=== PATIENT | female | born 1960 | race Caucasian/White ===

== ENCOUNTER → 2016-10-24 | Outpatient (CLI) | payer BC, OTHER ==
[2015-03-24 10:50] VITALS: BP 144/88
[~2016-10-24] MED LIST: ATOR40TA59 PO; HYDR12.58 PO; PARO40TA3 PO
--- NOTE | 2016-10-24 14:02 | RAD ---
DATE: 10/24/2016 EXAM: DIGITAL SCREEN BILAT W/CAD HISTORY: Routine screening COMPARISON: 09/30/2013 This study was interpreted with the benefit of Computerized Aided Detection (CAD). FINDINGS: There are scattered fibroglandular densities in the breasts in a slightly nodular pattern. No new or enlarging breast densities are seen. Benign type calcifications are present in both breasts. No suspicious microcalcifications are evident. IMPRESSION: Stable mammograms without evidence of malignancy. BI-RADS CATEGORY: 2 BENIGN FINDING(S) RECOMMENDED FOLLOW-UP: 12M 12 MONTH FOLLOW-UP PQRS compliance statement: Patient information was entered into a reminder system with a target due date for the next mammogram. Mammography is a sensitive method for finding small breast cancers, but it does not detect them all and is not a substitute for careful clinical examination. A negative mammogram does not negate a clinically suspicious finding and should not result in delay in biopsying a clinically suspicious abnormality. "Our facility is accredited by the [employer] Mammography [employer]."
== END | disposition home or self-care (01) ==
LOC: MAMMO 09:25
PROVIDERS: ATTEND Physician Assistant
DX: Z12.31 Encounter for screening mammogram for malignant neoplasm of breast (principal)
CPT/HCPCS: G0202; 77067

== ENCOUNTER → 2019-05-13 | Outpatient (CLI) | payer BC, OTHER ==
[2015-03-24 10:50] VITALS: BP 144/88
--- NOTE | 2019-05-14 10:30 | RAD ---
DATE: 05/13/2019 1:38 PM EXAM: DIGITAL SCREEN BILAT W/CAD HISTORY: Screening COMPARISON: October 24, 2016 and September 30, 2013 Bilateral CC and MLO views of the breasts were performed. This study was interpreted with the benefit of Computerized Aided Detection (CAD). FINDINGS: Breast Density: SCATTERED The breast parenchyma shows scattered fibroglandular densities. Breast parenchyma level B No suspicious masses, microcalcifications or architectural distortion is present to suggest malignancy in either breast. The visualized axillae are unremarkable. IMPRESSION: No mammographic evidence of malignancy. BI-RADS CATEGORY: 1 NEGATIVE RECOMMENDED FOLLOW-UP: 12M 12 MONTH FOLLOW-UP Annual screening mammography is recommended, unless clinically indicated sooner based on symptoms or change in physical exam. PQRS compliance statement: Patient information was entered into a reminder system with a target due date one year for the next mammogram. Mammography is a sensitive method for finding small breast cancers, but it does not detect them all and is not a substitute for careful clinical examination. A negative mammogram does not negate a clinically suspicious finding and should not result in delay in biopsying a clinically suspicious abnormality. "Our facility is accredited by the [employer] Mammography [employer]."
== END | disposition home or self-care (01) ==
LOC: MAMMO 13:32
PROVIDERS: ATTEND Family Medicine
DX: Z12.31 Encounter for screening mammogram for malignant neoplasm of breast (principal)
CPT/HCPCS: 77067

== ENCOUNTER → 2020-12-18 | Outpatient (CLI) | payer OTHER ==
[2015-03-24 10:50] VITALS: BP 144/88
--- NOTE | 2020-12-18 12:43 | RAD ---
EXAM: BILATERAL DIGITAL SCREENING MAMMOGRAPHY. HISTORY: Routine mammographic screening. TECHNIQUE: Bilateral full field digital images were obtained in CC and MLO projections. Computer-aide d detection was applied. COMPARISON: 05/13/2019, 10/24/2016, 09/30/2013. COMPOSITION: B. There are scattered areas of fibroglandular density. FINDINGS: There are new nodules just lateral to the nipple line on the left MLO view. There are not w ell seen on the MLO projection. See annotations. Scattered and coarse calcifications are benign. Circumscribed nodules on the right are stable. BI-RADS CATEGORY 0: Incomplete--Needs Additional Imaging Evaluation. RECOMMENDATION: 1. Spot compression and sonography of new nodules laterally on the left. See annotations. Electronically signed by: Sanya Fisher MD (12/18/2020 12:41 PM) [id number]
== END ==
LOC: MAMMO 08:02
PROVIDERS: ATTEND Family Medicine
DX: Z12.31 Encounter for screening mammogram for malignant neoplasm of breast (principal)
CPT/HCPCS: 77067

== ENCOUNTER → 2020-12-28 | Outpatient (CLI) | payer OTHER ==
[2015-03-24 10:50] VITALS: BP 144/88
--- NOTE | 2020-12-28 10:58 | RAD ---
PROCEDURE: US BREAST LT, MG DIAGNOSTICUNILAT MAMMO HISTORY: The patient is 60 years old and is seen for Reason: Call Back LT Bresat from [facility] Instructions: / History: . COMPARISON: December 18, 2020 and May 13, 2019 TECHNIQUE: Left breast MLO view and spot compression cc view. Targeted left breast ultrasound. DENSITY: There are scattered fibroglandular densities. FINDINGS: Left mammogram: Previously seen asymmetries persist on spot compression view. Small calcification wit hin the lateral breast is increased compared to prior. Left ultrasound: Small left breast cyst 4:00 position 4 cm from the nipple measures 0.4 cm correspond ing with mammographic finding. Several mildly dilated ducts within the lateral breast 4:00 position c orresponding with mammographic findings. IMPRESSION: 1. Mildly dilated ducts within the lateral inferior breast. Recommend 6 month follow-up ultrasound. BI-RADS category 3 Probably benign Our clinic nurse has been instructed to assist with communicating findings and recommendations to the patient's referring physician and in scheduling follow-up. Patient entered into a reminder system for annual screening mammogram. Electronically signed by: Jamari Leal DO (12/28/2020 10:56 AM) [id number]
== END ==
LOC: MAMMO 10:46
PROVIDERS: ATTEND Family Medicine
DX: N60.02 Solitary cyst of left breast (principal)
CPT/HCPCS: 76641; 77065

== ENCOUNTER → 2021-10-18 | Outpatient (CLI) | payer OTHER ==
[2015-03-24 10:50] VITALS: BP 144/88
--- NOTE | 2021-10-18 11:42 | RAD ---
EXAMINATION: US BREAST LT CLINICAL HISTORY: Follow-up dilated ducts left breast TECHNIQUE: Targeted left breast ultrasound performed with reese scale and color Doppler images in the lower outer quadrant, retroareolar region, and axilla. COMPARISON: Left breast ultrasound and diagnostic mammogram 12/28/2020 FINDINGS: No evidence of residual ductal ectasia. At 4:00 position 4 cm from the nipple, a 4 mm cyst is again s een, similar to the prior study, with 2 possible tiny satellite cysts. Benign-appearing left axillary lymph node. IMPRESSION: No evidence of malignancy. BI-RADS ASSESSMENT: Category 2: Benign RECOMMENDATION: Return for annual bilateral screening mammogram due in December 2021. PQRS compliance statement - Patient information was entered into a reminder system with a target due date for the next mammogram. "Our facility is accredited by the [employer] Mammography [employer]." Electronically signed by: Rivera Varghese DO (10/18/2021 11:39 AM) [id number]
== END ==
LOC: US 11:12
PROVIDERS: ATTEND Family Medicine
DX: R92.8 Other abnormal and inconclusive findings on diagnostic imaging of breast (principal)
CPT/HCPCS: 76641